=== PATIENT | female | born 1960 | race Caucasian/White ===

== ENCOUNTER → 2016-11-23 | Outpatient (CLI) | payer OTHER ==
--- NOTE | 2016-11-23 15:30 | REPMRS ---
Patient History The patient states she had a clinical breast exam in Patient is postmenopausal. Family history of breast cancer in mother at age 50 or over, breast cancer in maternal cousin under age 50, and ovarian cancer in maternal cousin under age 50. Digital Woman Screen Mammo: November 23, 2016 - Exam #: [id number] Bilateral CC and MLO view(s) were taken. Technologist: Cara Draper, Technologist Prior study comparison: November 11, 2015, digital woman screen mammo performed at [facility] [employer] [facility]. October 20, 2014, digital woman screen mammo performed at [facility] [employer] [facility]. October 15, 2013, digital woman screen mammo performed at [facility] [employer]. FINDINGS: There are scattered fibroglandular densities. There has been no change in the appearance of the mammogram from the prior studies. There is a mild amount of scattered fibroglandular density which is fairly symmetric. There is no interval development of dominant mass, architectural distortion, or clustered microcalcification suggestive of malignancy. ASSESSMENT: BI-RADS/ACR category 1 mammogram. Negative. Recommendation Routine screening mammogram in 1 year (for women over age 40). This mammogram was interpreted with the aid of an FDA-approved computer-aided dectection system. Electronically Signed By: Desmond Ovalle MD 11/23/16 [id number]
== END ==
LOC: M WHC 14:46
PROVIDERS: ATTEND Nurse Practitioner Women's Health
DX: Z12.31 Encounter for screening mammogram for malignant neoplasm of breast (principal); Z78.0 Asymptomatic menopausal state; Z80.3 Family history of malignant neoplasm of breast

== ENCOUNTER → 2016-11-23 | Outpatient (REF) | payer OTHER | END | disposition home or self-care (01) | LOC: M SFHCWAGY 14:48 | PROVIDERS: ATTEND Nurse Practitioner Women's Health | DX: Z01.419 Encounter for gynecological examination (general) (routine) without abnormal findings (principal); Z11.51 Encounter for screening for human papillomavirus (HPV) ==

== ENCOUNTER → 2016-12-05 | Outpatient (REF) | payer OTHER | LOC: M SFHCWAGY 16:57 | PROVIDERS: ATTEND Nurse Practitioner Family | DX: N94.89 Other specified conditions associated with female genital organs and menstrual cycle (principal) ==

== ENCOUNTER → 2017-05-11 | Outpatient (REF) | payer OTHER ==
[~2017-05-11] MED LIST: ASPI81TA85 PO; ATOR1TAB21 PO; FISH100049 PO
[2017-05-11 17:23] LABS: CHOLESTEROL LEVEL 253 MG/DL (<200); TRIGLYCERIDES LEVEL 575 MG/DL (<150)
== END ==
LOC: M SFHCPLAZ 07:45
PROVIDERS: ATTEND Nurse Practitioner Adult Health
DX: Z72.0 Tobacco use (principal)

== ENCOUNTER 2017-05-12 14:54 | Emergency (ER) | payer OTHER ==
[~2017-05-12] VITALS: Ht 152.4 cm; Wt 72.7 kg
[2017-05-12] MEDS ORDERED: FISH100049 PO (15:08)
[2017-05-12] MEDS ORDERED: ATOR1TAB21 PO (15:08)
[2017-05-12] MEDS ORDERED: ASPIRIN 81 MG CHEW TABLET PO ONE (15:30)
[2017-05-12 15:58] LABS: BASO # 0.1 K/mm3 (0.0-0.2); BASO % 0.8 % (0.0-1.0); EOS # 0.2 K/mm3 (0.0-0.50); EOS % 1.9 % (0.0-3.0); LARGE UNSTAINED CELL # 0.1 K/mm3 (0.0-0.4); LARGE UNSTAINED CELL % 1.4 % (0.0-4.0); LYMPH # 2.4 K/mm3 (1.5-4.5); LYMPH % 22.4 % (24.0-44.0); MEAN CORPUSCULAR HEMOGLOBIN 31.8 pg (27.0-33.0); MEAN CORPUSCULAR HGB CONC 34.2 g/dl (32.0-36.5); MONO # 0.6 K/mm3 (0.0-0.8); MONO % 5.9 % (0.0-5.0); NEUTROPHILS % 67.7 % (36.0-66.0); PLATELET COUNT, AUTOMATED 292 k/mm3 (150-450); RED CELL DISTRIBUTION WIDTH 13.2 % (11.5-14.5); WHITE BLOOD COUNT 10.3 K/mm3 (4.0-10.0)
[2017-05-12 16:06] LABS: INR 0.89
[2017-05-12 16:22] LABS: ALBUMIN 3.5 GM/DL (3.2-5.2); ALBUMIN/GLOBULIN RATIO 1.03 (1.00-1.93); ALKALINE PHOSPHATASE 91 U/L (45-117); ALT/SGPT 27 U/L (12-78); ANION GAP 9 MEQ/L (8-16); AST/SGOT 16 U/L (15-37); BILIRUBIN,DIRECT < 0.1 MG/DL (0.0-0.2); BILIRUBIN,TOTAL 0.2 MG/DL (0.2-1.0); BLOOD UREA NITROGEN 21 MG/DL (7-18); CALCIUM LEVEL 9.2 MG/DL (8.5-10.1); CARBON DIOXIDE LEVEL 26 MEQ/L (21-32); CHLORIDE LEVEL 107 MEQ/L (98-107); CREATININE FOR GFR 0.74 MG/DL (0.55-1.02); GLOMERULAR FILTRATION RATE > 60.0 (>51); GLUCOSE, FASTING 96 MG/DL (70-105); POTASSIUM SERUM 4.2 MEQ/L (3.5-5.1); SODIUM LEVEL 142 MEQ/L (136-145); TOTAL PROTEIN 6.9 GM/DL (6.4-8.2)
[2017-05-12] MEDS ORDERED: ASPI81TA85 PO (16:33)
[2017-05-12 16:34] LABS: ERYTHROCYTE SEDIMENTATION RATE 35 mm/hr (0-30)
--- NOTE | 2017-05-12 16:51 | REP ---
CHEST, SINGLE VIEW, PORTABLE: COMPARISON: 03/27/2013 There is no evidence of acute infiltrate. No pleural effusion is seen. The heart is normal in size. The mediastinal silhouette is unremarkable. The visualized osseous structures are intact. IMPRESSION: No acute pulmonary disease. Signed by Fuentes Hernandez MD 05/12/2017 04:52 P
[2017-05-12 22:10] VITALS: BP 133/60
--- NOTE | 2017-05-14 02:16 | ECGEPIP ---
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
--- NOTE | 2017-05-14 02:32 | ECGEPIP ---
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
== END 2017-05-12 22:20 | disposition home or self-care (01) ==
LOC: M ED 14:54
DX: R07.9 Chest pain, unspecified (principal); E78.4 Other hyperlipidemia; Z72.0 Tobacco use

== ENCOUNTER → 2017-05-16 | Outpatient (REF) | payer OTHER ==
[2017-05-19 00:06] LABS: Lyme Disease IgG/IgM Antibodie <0.91 ISR (0.00-0.90); Lyme Disease IgM Ab Quantitati <0.80 index (0.00-0.79)
== END ==
LOC: M SFHCPLAZ 14:20
PROVIDERS: ATTEND Nurse Practitioner Adult Health
DX: M79.1 Myalgia (principal)

== ENCOUNTER → 2017-06-13 | Outpatient (CLI) | payer OTHER ==
--- NOTE | 2017-06-14 07:06 | REP ---
Clinical: Lung screening. Nicotine dependence. Comparison: None Technique: Axial low-dose noncontrast images from the thoracic inlet to the upper abdomen using lung screening technique. Findings: The lung wiley are well-aerated. There are small areas of opacity identified in the lingula and medial right middle lobe which may reflect nonacute fibroatelectatic changes. No significant nodule or mass lesion is appreciated. No pleural effusion/reaction or pneumothorax. Tracheobronchial tree is patent. Mediastinum demonstrates mild atherosclerotic changes of the coronary arteries without cardiomegaly. Impression: Lung-RADS category III (Probably benign findings). With small areas of opacity noted in the right middle lobe and lingula. Consider follow-up low-dose CT examination in 6 months to evaluate for stability. Signed by Jared Morales MD 06/14/2017 06:58 A
== END ==
LOC: M RAD 16:54
PROVIDERS: ATTEND Nurse Practitioner Adult Health
DX: Z12.2 Encounter for screening for malignant neoplasm of respiratory organs (principal); F17.210 Nicotine dependence, cigarettes, uncomplicated

== ENCOUNTER → 2017-07-12 | Outpatient (REF) | payer OTHER | LOC: M LAB REF 16:15 | PROVIDERS: ATTEND Obstetrics & Gynecology | DX: R39.89 Other symptoms and signs involving the genitourinary system (principal) ==

== ENCOUNTER → 2017-09-20 | Outpatient (REF) | payer OTHER ==
[2017-09-20 18:31] LABS: BASO # 0.1 10^3/uL (0.0-0.2); BASO % 0.6 % (0.0-1.0); EOS # 0.2 10^3/uL (0.0-0.50); EOS % 1.8 % (0.0-3.0); IMMATURE GRANULOCYTE % 1.1 % (0-0); LYMPH # 3.4 10^3/uL (1.5-4.5); LYMPH % 31.5 % (24.0-44.0); MEAN CORPUSCULAR HEMOGLOBIN 30.4 pg (27.0-33.0); MEAN CORPUSCULAR HGB CONC 32.6 g/dl (32.0-36.5); MEAN CORPUSCULAR VOLUME 93.2 fl (80.0-96.0); MONO # 0.8 10^3/uL (0.0-0.8); MONO % 7.8 % (0.0-5.0); NEUTROPHILS # 6.1 10^3/uL (1.8-7.7); NEUTROPHILS % 57.2 % (36.0-66.0); PLATELET COUNT, AUTOMATED 400 10^3/uL (150-450); RED CELL DISTRIBUTION WIDTH 13.1 % (11.5-14.5); WHITE BLOOD COUNT 10.7 10^3/uL (4.0-10.0)
[2017-09-20 18:42] LABS: ANION GAP 8 MEQ/L (8-16); BLOOD UREA NITROGEN 14 MG/DL (7-18); CALCIUM LEVEL 9.3 MG/DL (8.5-10.1); CARBON DIOXIDE LEVEL 27 MEQ/L (21-32); CHLORIDE LEVEL 107 MEQ/L (98-107); GLOMERULAR FILTRATION RATE > 60.0 (>51); GLUCOSE, FASTING 70 MG/DL (70-105); POTASSIUM SERUM 4.4 MEQ/L (3.5-5.1); SODIUM LEVEL 142 MEQ/L (136-145)
== END ==
LOC: M LABDRAW1 15:27
PROVIDERS: ATTEND Internal Medicine Cardiovascular Disease
DX: R06.02 Shortness of breath (principal)

== ENCOUNTER → 2017-09-28 | Outpatient (REF) | payer OTHER ==
[2017-09-28 19:56] LABS: ALBUMIN 3.9 GM/DL (3.2-5.2); ALBUMIN/GLOBULIN RATIO 0.98 (1.00-1.93); ALKALINE PHOSPHATASE 81 U/L (45-117); ALT/SGPT 25 U/L (12-78); ANION GAP 8 MEQ/L (8-16); AST/SGOT 17 U/L (7-37); BILIRUBIN,TOTAL 0.2 MG/DL (0.2-1.0); BLOOD UREA NITROGEN 22 MG/DL (7-18); CALCIUM LEVEL 9.1 MG/DL (8.5-10.1); CARBON DIOXIDE LEVEL 26 MEQ/L (21-32); CHLORIDE LEVEL 109 MEQ/L (98-107); CHOLESTEROL LEVEL 240 MG/DL (<200); GLOMERULAR FILTRATION RATE > 60.0 (>51); GLUCOSE, FASTING 80 MG/DL (70-105); POTASSIUM SERUM 4.3 MEQ/L (3.5-5.1); SODIUM LEVEL 143 MEQ/L (136-145); TOTAL PROTEIN 7.9 GM/DL (6.4-8.2); TRIGLYCERIDES LEVEL 230 MG/DL (<150)
== END ==
LOC: M SFHCPLAZ 11:07
PROVIDERS: ATTEND Nurse Practitioner Adult Health
DX: E78.2 Mixed hyperlipidemia (principal)

== ENCOUNTER → 2017-12-27 | Outpatient (REF) | payer OTHER | LOC: M SFHCWAGY 14:30 | DX: Z12.4 Encounter for screening for malignant neoplasm of cervix (principal); R87.610 Atypical squamous cells of undetermined significance on cytologic smear of cervix (ASC-US) | CPT/HCPCS: G0123 ==

== ENCOUNTER → 2017-12-27 | Outpatient (CLI) | payer OTHER | LOC: M WHC 14:05 | DX: Z12.31 Encounter for screening mammogram for malignant neoplasm of breast (principal) ==

== ENCOUNTER → 2018-01-11 | Outpatient (REF) | payer OTHER | LOC: M SFHCWAGY 14:36 | DX: R87.610 Atypical squamous cells of undetermined significance on cytologic smear of cervix (ASC-US) (principal); R87.810 Cervical high risk human papillomavirus (HPV) DNA test positive ==

== ENCOUNTER → 2018-04-06 | Outpatient (REF) | payer OTHER ==
[2018-04-06 15:42] LABS: ALBUMIN 3.5 GM/DL (3.2-5.2); ALBUMIN/GLOBULIN RATIO 0.92 (1.00-1.93); ALKALINE PHOSPHATASE 87 U/L (45-117); ALT/SGPT 27 U/L (12-78); ANION GAP 11 MEQ/L (8-16); AST/SGOT 19 U/L (7-37); BILIRUBIN,TOTAL 0.2 MG/DL (0.2-1.0); BLOOD UREA NITROGEN 17 MG/DL (7-18); CALCIUM LEVEL 8.8 MG/DL (8.5-10.1); CARBON DIOXIDE LEVEL 23 MEQ/L (21-32); CHLORIDE LEVEL 109 MEQ/L (98-107); CHOLESTEROL LEVEL 255 MG/DL (<200); CHOLESTEROL RISK RATIO 6.375 (<5); GLOMERULAR FILTRATION RATE > 60.0 (>51); GLUCOSE, FASTING 80 MG/DL (70-100); HDL CHOLESTEROL 40 MG/DL (>40); LDL CHOLESTEROL 147.4 MG/DL (<100); NON-HDL-C 215 MG/DL; POTASSIUM SERUM 4.4 MEQ/L (3.5-5.1); SODIUM LEVEL 143 MEQ/L (136-145); TOTAL PROTEIN 7.3 GM/DL (6.4-8.2); TRIGLYCERIDES LEVEL 338 MG/DL (<150)
== END ==
LOC: M LABDRAW1 11:55
DX: Z00.00 Encounter for general adult medical examination without abnormal findings (principal); E78.2 Mixed hyperlipidemia

== ENCOUNTER → 2018-04-23 | Outpatient (CLI) | payer OTHER | LOC: M RAD 12:35 | DX: R91.8 Other nonspecific abnormal finding of lung field (principal) | CPT/HCPCS: 71250 ==

== ENCOUNTER → 2019-02-06 | Outpatient (CLI) | payer OTHER ==
--- NOTE | 2019-02-06 15:54 | REPMRS ---
Patient History The patient states she had a clinical breast exam in 01/2019. Family history of breast cancer at age 50 or over in mother, breast cancer under age 50 and ovarian cancer under age 50 in maternal cousin. Benign excisional biopsy of the left breast, 2006. 3D TOMOSYNTHESIS WAS PERFORMED. Digital Woman Screen Mammo: February 06, 2019 - Exam #: [id number] Bilateral CC and MLO view(s) were taken. Technologist: Lisbeth Hu, Technologist Prior study comparison: December 27, 2017, digital woman screen mammo performed at [facility] [employer] [facility] [employer] [facility]. November 23, 2016, digital woman screen mammo performed at [facility] [employer] [facility] [employer] [facility]. FINDINGS: There are scattered fibroglandular densities. There has been no change in the appearance of the mammogram from the prior studies. There is a mild amount of residual fibroglandular tissue which is fairly symmetric. There is no interval development of dominant mass, architectural distortion, or clustered microcalcification suggestive of malignancy. Assessment: BI-RADS/ACR category 1 mammogram. Negative Mammogram. Recommendation Routine screening mammogram in 1 year (for women over age 40). This mammogram was interpreted with the aid of an FDA-approved computer-aided dectection system. Electronically Signed By: Fuentes Hernandez MD 02/06/19 [id number]
== END ==
LOC: M WHC 14:07
PROVIDERS: ATTEND Nurse Practitioner Women's Health
DX: Z12.31 Encounter for screening mammogram for malignant neoplasm of breast (principal); Z80.3 Family history of malignant neoplasm of breast

== ENCOUNTER → 2019-02-06 | Outpatient (REF) | payer OTHER ==
[2019-02-08 14:26] LABS: HPV HYBRID CAPTURE II Negative (Negative)
== END ==
LOC: M SFHCWAGY 14:39
PROVIDERS: ATTEND Nurse Practitioner Women's Health
DX: Z87.898 Personal history of other specified conditions (principal); Z12.4 Encounter for screening for malignant neoplasm of cervix
CPT/HCPCS: 87624; G0123

== ENCOUNTER → 2019-04-04 | Outpatient (REF) | payer OTHER ==
[2019-04-04 16:50] LABS: ALBUMIN 3.3 GM/DL (3.2-5.2); ALT/SGPT 20 U/L (12-78); BILIRUBIN,TOTAL < 0.1 MG/DL (0.2-1.0); BLOOD UREA NITROGEN 23 MG/DL (7-18); CALCIUM LEVEL 9.1 MG/DL (8.5-10.1); CARBON DIOXIDE LEVEL 26 MEQ/L (21-32); CHLORIDE LEVEL 111 MEQ/L (98-107); CHOLESTEROL LEVEL 219 MG/DL (<200); CHOLESTEROL RISK RATIO 5.214 (<5); CREATININE FOR GFR 0.77 MG/DL (0.55-1.30); GLOMERULAR FILTRATION RATE > 60.0 (>51); GLUCOSE, FASTING 90 MG/DL (70-100); HDL CHOLESTEROL 42 MG/DL (>40); LDL CHOLESTEROL 131 MG/DL (<100); NON-HDL-C 177 MG/DL; POTASSIUM SERUM 4.3 MEQ/L (3.5-5.1); SODIUM LEVEL 142 MEQ/L (136-145); TOTAL PROTEIN 6.9 GM/DL (6.4-8.2); TRIGLYCERIDES LEVEL 228 MG/DL (<150)
[2019-04-04 16:55] LABS: TOTAL 25(OH) VITAMIN D 15.7 NG/ML (30.0-100.0)
== END ==
LOC: M SFHCCAPE 08:47
PROVIDERS: ATTEND Nurse Practitioner Adult Health
DX: E78.2 Mixed hyperlipidemia (principal); E55.9 Vitamin D deficiency, unspecified

== ENCOUNTER → 2020-06-16 | Outpatient (CLI) | payer BC ==
[~2020-06-16] MED LIST changes: -ASPI81TA85 PO; +ASPI81TA86 PO
--- NOTE | 2020-06-16 12:06 | REPMRS ---
Patient History The patient states she had a clinical breast exam in June 2020. Patient is postmenopausal. Family history of breast cancer at age 50 or over in mother, breast cancer under age 50 and ovarian cancer under age 50 in maternal cousin, breast cancer at age 52 in maternal cousin. Benign excisional biopsy of the left breast, 2005. 3D TOMOSYNTHESIS WAS PERFORMED. The [facility] lifetime risk for breast cancer is 11.1%. VOLPARA DENSITY B. Digital Woman Screen Mammo: June 16, 2020 - Exam #: [id number] Bilateral CC and MLO view(s) were taken. Technologist: Shireen Marquez, Technologist Prior study comparison: February 06, 2019, bilateral digital woman screen mammo performed at [facility]. December 27, 2017, digital woman screen mammo performed at [facility]. FINDINGS: There are scattered fibroglandular densities. There has been no change in the appearance of the mammogram from the prior studies. There is a mild amount of residual fibroglandular tissue which is fairly symmetric. There is no interval development of dominant mass, architectural distortion, or clustered microcalcification suggestive of malignancy. Assessment: BI-RADS/ACR category 1 mammogram. Negative Mammogram. Recommendation Routine screening mammogram in 1 year (for women over age 40). This mammogram was interpreted with the aid of an FDA-approved computer-aided dectection system. Electronically Signed By: Fuentes Hernandez MD 06/16/20 [id number]
== END ==
LOC: M WHC 09:20
PROVIDERS: ATTEND Nurse Practitioner Women's Health
DX: Z12.31 Encounter for screening mammogram for malignant neoplasm of breast (principal)

== ENCOUNTER → 2021-01-08 | Outpatient (CLI) | payer BC, OTHER ==
[~2021-01-08] MED LIST changes: +ISOVUE-300 61% 50ML VIAL As Ordered ONE; +LIDOCAINE 1% MDV 20ML VIAL As Ordered ONE; +TRIAMCINOLONE ACETONIDE SUSP 40 MG/ML VIAL (J3301) As Ordered ONE
--- NOTE | 2021-01-08 17:54 | REP ---
INDICATION: OSTEOARTHRITIS LEFT SHOULDER. COMPARISON: None. TECHNIQUE: The procedure was performed under the direct supervision of Dr. Hernandez. The benefits and risks including but not limited to pain infection and bleeding and anaphylaxis were explained to the patient and informed consent was obtained. The left glenohumeral joint space was localized using fluoroscopic guidance. The skin was prepped and draped in a sterile fashion. 1% lidocaine was used as a local anesthetic. Using fluoroscopic guidance a 22 gauge spinal needle was inserted and advanced into the joint. 1 cc of Isovue-300 was injected to verify placement. 6 cc of a solution containing 5 cc of 1% lidocaine and 1 cc of Kenalog 40 mg was injected. The needle was then removed. The patient tolerated the procedure well and there were no immediate complications. Less than 6 seconds of fluoro time was utilized for this procedure. FINDINGS: None IMPRESSION: Fluoro guidance for left shoulder injection. <Electronically signed by Aries Davila > 01/08/21 2046 <Electronically signed by Fuentes Hernandez > 01/08/21 1208
== END ==
LOC: M RADPRO 11:05
PROVIDERS: ATTEND Orthopaedic Surgery
DX: M19.012 Primary osteoarthritis, left shoulder (principal)
CPT/HCPCS: 20610; 77002; J3301; Q9967

== ENCOUNTER → 2021-04-19 | Outpatient (CLI) | payer OTHER ==
[~2021-04-19] MED LIST changes: -ISOVUE-300 61% 50ML VIAL As Ordered ONE; -LIDOCAINE 1% MDV 20ML VIAL As Ordered ONE; -TRIAMCINOLONE ACETONIDE SUSP 40 MG/ML VIAL (J3301) As Ordered ONE
--- NOTE | 2021-04-19 14:23 | REP ---
INDICATION: SOB COMPARISON: 05/12/2017 TECHNIQUE: PA and lateral. FINDINGS: The mediastinum and cardiac silhouette are normal. The lung wiley are clear and without acute consolidation, effusion, or pneumothorax. Small areas of chronic linear scarring in the left lower lobe noted. The skeletal structures are intact and normal. IMPRESSION: No acute cardiopulmonary process. <Electronically signed by Jared Morales > 04/19/21 [id number]
== END ==
LOC: M WUC 13:58
PROVIDERS: ATTEND Internal Medicine
DX: R06.02 Shortness of breath (principal); J98.4 Other disorders of lung

== ENCOUNTER → 2021-07-21 | Outpatient (REF) | payer OTHER | LOC: M SFHCWAGY 14:02 | PROVIDERS: ATTEND Nurse Practitioner Women's Health | DX: Z12.4 Encounter for screening for malignant neoplasm of cervix (principal); Z01.419 Encounter for gynecological examination (general) (routine) without abnormal findings; Z77.9 Other contact with and (suspected) exposures hazardous to health ==

== ENCOUNTER → 2021-07-21 | Outpatient (CLI) | payer OTHER ==
--- NOTE | 2021-07-21 11:03 | REPMRS ---
Patient History The patient states she had a clinical breast exam in July 2021. Family history of breast cancer at age 50 or over in mother, breast cancer under age 50 and ovarian cancer under age 50 in maternal cousin, breast cancer at age 52 in maternal cousin. Benign excisional biopsy of the left breast, 2005. Patient states no breast complaints today. Patient has signed MRS History Sheet. Digital Woman Screen Mammo: July 21, 2021 - Exam #: [id number] Bilateral CC and MLO view(s) were taken. Technologist: Lisbeth Hu, Technologist Prior study comparison: June 16, 2020, bilateral digital woman screen mammo performed at [facility]. February 06, 2019, bilateral digital woman screen mammo performed at [facility]. December 27, 2017, digital woman screen mammo performed at [facility]. FINDINGS: The breast tissue is almost entirely fat. The Volpara volumetric breast density category is: A. There has been no change in the appearance of the mammogram from the prior studies. There is no interval development of dominant mass, architectural distortion, or grouped microcalcification typical of malignancy. 3-D tomosynthesis shows no additional findings. Assessment: BI-RADS/ACR category 1 mammogram. Negative Mammogram. Recommendation Routine screening mammogram of both breasts in 1 year (for women over age 40). This patient's [facility] Lifetime Breast Cancer RIsk is estimated at 10.7 %. This mammogram was interpreted with the aid of an FDA-approved computer-aided dectection system. Electronically Signed By: Desmond Ovalle MD 07/21/21 8464
== END ==
LOC: M WHC 09:38
PROVIDERS: ATTEND Nurse Practitioner Women's Health
DX: Z12.31 Encounter for screening mammogram for malignant neoplasm of breast (principal)

== ENCOUNTER → 2022-05-05 | Outpatient (CLI) | payer OTHER ==
[~2022-05-05] MED LIST changes: +ATOR1TAB19 PO
== END ==
LOC: M LABSMTC 09:47
PROVIDERS: ATTEND Anesthesiology
DX: Z01.818 Encounter for other preprocedural examination (principal); Z11.52 Encounter for screening for COVID-19

== ENCOUNTER 2022-05-10 11:56 | Day surgery (SDC) | payer OTHER ==
[~2022-05-10] VITALS: Ht 149.9 cm; Wt 78.9 kg
[2022-05-10] MEDS ORDERED: NS 1,000 ML IV ONE (14:00)
[2022-05-10 14:08] VITALS: BP 128/60
== END 2022-05-10 14:22 | disposition home or self-care (01) ==
LOC: M OPP 11:56
PROVIDERS: ATTEND Internal Medicine Gastroenterology
DX: Z12.11 Encounter for screening for malignant neoplasm of colon (principal); K63.5 Polyp of colon; K57.30 Diverticulosis of large intestine without perforation or abscess without bleeding; K64.8 Other hemorrhoids; K22.4 Dyskinesia of esophagus; K31.89 Other diseases of stomach and duodenum; K31.811 Angiodysplasia of stomach and duodenum with bleeding; G47.30 Sleep apnea, unspecified; E78.00 Pure hypercholesterolemia, unspecified; F17.290 Nicotine dependence, other tobacco product, uncomplicated; Z79.02 Long term (current) use of antithrombotics/antiplatelets; Z80.1 Family history of malignant neoplasm of trachea, bronchus and lung

== ENCOUNTER → 2022-06-30 | Outpatient (CLI) | payer OTHER | LOC: M SOG 09:43 | PROVIDERS: ATTEND Orthopaedic Surgery Adult Reconstructive Orthopaedic Surgery | DX: M16.11 Unilateral primary osteoarthritis, right hip (principal); M89.8X5 Other specified disorders of bone, thigh ==

== ENCOUNTER → 2022-08-09 | Outpatient (CLI) | payer OTHER ==
[2022-08-09 13:42] LABS: ALBUMIN 3.4 GM/DL (3.2-5.2); ALT/SGPT 37 U/L (12-78); BILIRUBIN,TOTAL 0.3 MG/DL (0.2-1.0); BLOOD UREA NITROGEN 16 MG/DL (7-18); CALCIUM LEVEL 9.3 MG/DL (8.8-10.2); CARBON DIOXIDE LEVEL 26 MEQ/L (21-32); CHLORIDE LEVEL 105 MEQ/L (98-107); CHOLESTEROL LEVEL 203 MG/DL (<200); CHOLESTEROL RISK RATIO 4.951 (<5); CREATININE FOR GFR 0.74 MG/DL (0.55-1.30); GLOMERULAR FILTRATION RATE > 60.0 (>45); GLUCOSE, FASTING 111 MG/DL (70-100); HDL CHOLESTEROL 41 MG/DL (>40); NON-HDL-C 162 MG/DL; POTASSIUM SERUM 4.6 MEQ/L (3.5-5.1); SODIUM LEVEL 136 MEQ/L (136-145); TOTAL PROTEIN 7.1 GM/DL (6.4-8.2); TRIGLYCERIDES LEVEL 438 MG/DL (<150)
== END ==
LOC: M WUC 09:12
PROVIDERS: ATTEND Internal Medicine
DX: E78.5 Hyperlipidemia, unspecified (principal)

== ENCOUNTER 2022-08-22 13:03 | Outpatient (RCR) | payer OTHER ==
[~2022-08-22 13:03] MED LIST changes: -PROHANCE 279.3MG/ML 15ML VIAL As Ordered ONE
[2022-09-15] MEDS ORDERED: FENO145T7 PO (11:37)
== END 2022-09-14 ==
LOC: M PT 13:03
PROVIDERS: ATTEND Orthopaedic Surgery Adult Reconstructive Orthopaedic Surgery
DX: M16.0 Bilateral primary osteoarthritis of hip (principal)

== ENCOUNTER → 2022-08-22 | Outpatient (CLI) | payer OTHER ==
[~2022-08-22] MED LIST changes: +PROHANCE 279.3MG/ML 15ML VIAL As Ordered ONE
== END ==
LOC: M RAD 15:38
PROVIDERS: ATTEND Orthopaedic Surgery Adult Reconstructive Orthopaedic Surgery
DX: M16.0 Bilateral primary osteoarthritis of hip (principal); M25.451 Effusion, right hip; M89.9 Disorder of bone, unspecified
CPT/HCPCS: 73723; A9576

== ENCOUNTER → 2022-09-13 | Outpatient (CLI) | payer OTHER ==
[~2022-09-13] MED LIST changes: +FENO145T7 PO
== END ==
LOC: M RAD 16:07
PROVIDERS: ATTEND Orthopaedic Surgery Adult Reconstructive Orthopaedic Surgery
DX: M16.0 Bilateral primary osteoarthritis of hip (principal); M17.0 Bilateral primary osteoarthritis of knee

== ENCOUNTER → 2022-09-22 | Outpatient (CLI) | payer OTHER | LOC: M LABSMTC 10:05 | PROVIDERS: ATTEND Anesthesiology | DX: Z01.812 Encounter for preprocedural laboratory examination (principal); Z11.52 Encounter for screening for COVID-19 ==

== ENCOUNTER 2022-09-27 09:10 | Inpatient (IN) | payer OTHER ==
[2022-09-27] VITALS (8 sets, daily range): BP systolic 115–122; BP diastolic 59–68; O2SAT 94–96
[~2022-09-27] VITALS: Ht 152.4 cm; Wt 79.3 kg
[~2022-09-27 09:10] MED LIST changes: +ACETAMINOPHEN 500 MG TAB PO ONE; +LIDOCAINE 2% 100MG/5ML SDV (FOR ANES.) As Ordered ONE; +MIDAZOLAM INJ 2MG/2ML VIAL (J2250 PER 1MG) As Ordered ONE; +NAPROXEN 250 MG TAB PO ONE; +NS 1,000 ML IV ONE; +ONDANSETRON 4MG 2ML VIAL As Ordered ONE; +PHENYLEPHRINE 10MG/ML 1ML VIAL As Ordered ONE; +PREGABALIN 25 MG CAP (LYRICA) PO ONE; +ROPIVA 125MG/EPINEPH 0.25MG/CLONID 40MCG/KETOR 15MG IN NS 50ML SYRINGE PA ONE; +ceFAZolin SOD 2 GM in IV 1 EA IV ONE; +propofoL 500 MG/50 ML VIAL As Ordered ONE
[2022-09-27] MEDS ORDERED: LR 1,000 ML IV SCH ×3 (09:25→14:30)
[2022-09-27] MEDS ORDERED: HOME MED LIST COMPLETE! XX SCH (10:00)
[2022-09-27] MEDS ORDERED: TRANEXAMIC ACID 100 MG/ML 10ML VIAL As Ordered ONE (10:21)
[2022-09-27] MEDS ORDERED: fentaNYL 100 MCG/2 ML INJECTION As Ordered ONE (10:35)
[2022-09-27] MEDS ORDERED: ROCURONIUM BROMIDE 50 MG/5 ML VIAL As Ordered ONE (10:36)
[2022-09-27] MEDS ORDERED: HYDROmorphone HCL 2MG/ML 1ML VIAL As Ordered ONE (11:27)
[2022-09-27] MEDS ORDERED: VECURONIUM BROMIDE 10MG VIAL As Ordered ONE (11:42)
[2022-09-27] MEDS ORDERED: VANCOMYCIN 1000MG/20ML VIAL As Ordered ONE (13:35)
[2022-09-27] MEDS ORDERED: SUGAMMADEX SODIUM 500 MG/5 ML VIAL (BRIDION) As Ordered ONE (13:51)
[2022-09-27] MEDS ORDERED: ONDANSETRON 4MG 2ML VIAL IV PRN ×2 (14:10→14:30)
[2022-09-27] MEDS ORDERED: HYDROMORPHONE HCL 0.5 MG/ 0.5 ML SYRINGE (J1170 PER 1) IV PRN (14:10)
[2022-09-27] MEDS ORDERED: oxyCODONE 5MG TAB PO PRN ×3 (14:10→14:30)
[2022-09-27] MEDS ORDERED: fentaNYL 100 MCG/2 ML INJECTION IV PRN (14:10)
[2022-09-27] MEDS ORDERED: SENNA 8.6 MG TAB (SENOKOT) PO PRN (14:30)
[2022-09-27] MEDS ORDERED: MOM 30ML SUSPENSION UDC PO PRN (15:05)
[2022-09-27] MEDS ORDERED: MAALOX 30 ML SUSP *UDC PO PRN (15:05)
[2022-09-27] MEDS: ceFAZolin SOD 2 GM in IV 1 EA IV SCH (17:53)
[2022-09-27] MEDS: FENOFIBRATE 145MG TABLET (TRICOR) PO SCH (17:54)
[2022-09-27] MEDS: ACETAMINOPHEN TAB 650MG DOSE (2X325MG) PO SCH ×2 (17:54→23:42)
[2022-09-27] MEDS: DOCUSATE SODIUM 100MG CAPSULE PO SCH (20:49)
[2022-09-27] MEDS: NAPROXEN 250 MG TAB PO SCH (20:49)
[2022-09-27] MEDS: ASPIRIN 81MG ENTERIC TABLET PO SCH (20:49)
[2022-09-27] MEDS ORDERED: ATORVASTATIN 10 MG TAB PO SCH (21:00)
[2022-09-28 02:00] VITALS: BP 121/63
[2022-09-28] MEDS: ceFAZolin SOD 2 GM in IV 1 EA IV SCH (02:58)
[2022-09-28] MEDS: ACETAMINOPHEN TAB 650MG DOSE (2X325MG) PO SCH ×2 (05:24→11:30)
[2022-09-28 06:00] VITALS: BP 132/70
[2022-09-28 06:26] LABS: BASO % 0.2 % (0.0-1.0); EOS % 0.1 % (0.0-3.0); HEMATOCRIT 36.5 % (36.0-47.0); HEMOGLOBIN 11.5 g/dl (12.0-15.5); LYMPH # 1.7 10^3/uL (1.5-5.0); LYMPH % 11.8 % (24.0-44.0); MEAN CORPUSCULAR HEMOGLOBIN 29.7 pg (27.0-33.0); MEAN CORPUSCULAR HGB CONC 31.5 g/dl (32.0-36.5); MEAN CORPUSCULAR VOLUME 94.3 fl (80.0-96.0); MONO % 12.6 % (2.0-8.0); NEUTROPHILS # 10.5 10^3/uL (1.5-8.5); NEUTROPHILS % 74.4 % (36.0-66.0); PLATELET COUNT, AUTOMATED 308 10^3/uL (150-450); RED BLOOD COUNT 3.87 10^6/uL (4.00-5.40); WHITE BLOOD COUNT 14.1 10^3/uL (4.0-10.0)
[2022-09-28 06:44] LABS: MAGNESIUM LEVEL 1.7 MG/DL (1.8-2.4)
[2022-09-28 06:45] LABS: BLOOD UREA NITROGEN 27 MG/DL (9-23); CARBON DIOXIDE LEVEL 25 MMOL/L (20-31); CHLORIDE LEVEL 105 MMOL/L (98-107); CREATININE FOR GFR 0.77 MG/DL (0.55-1.30); GLOMERULAR FILTRATION RATE > 60.0 (>45); GLUCOSE, FASTING 146 MG/DL (74-106); POTASSIUM SERUM 4.8 MMOL/L (3.5-5.1); SODIUM LEVEL 137 MMOL/L (136-145)
[2022-09-28 07:01] LABS: MONO # 1.8 10^3/uL (0.0-0.8)
[2022-09-28] MEDS ORDERED: MAG SULF 1GM/100ML (MAG RUN) 1 GM in IV 1 EA IV ONE (08:00)
[2022-09-28 09:00] VITALS: O2SAT 94
[2022-09-28] MEDS ORDERED: ASCORBIC ACID 500 MG TAB PO SCH (09:00)
[2022-09-28] MEDS ORDERED: FERROUS SULFATE 325MG TAB PO SCH (09:00)
[2022-09-28] MEDS: NAPROXEN 250 MG TAB PO SCH (09:03)
[2022-09-28] MEDS: ASPIRIN 81MG ENTERIC TABLET PO SCH (09:03)
[2022-09-28] MEDS: DOCUSATE SODIUM 100MG CAPSULE PO SCH (09:03)
[2022-09-28] MEDS ORDERED: ASCO50TA PO (11:21)
[2022-09-28] MEDS ORDERED: FERR1TAB8 PO (11:21)
[2022-09-28] MEDS ORDERED: OXYC-517 PO (11:21)
[2022-09-28] MEDS ORDERED: ASPI81TAEC PO (11:21)
[2022-09-28] MEDS ORDERED: COLA100C5 PO (11:21)
[2022-09-28] MEDS: FENOFIBRATE 145MG TABLET (TRICOR) PO SCH (11:30)
== END 2022-09-28 14:10 | disposition home or self-care (01) | DRG 301 ==
LOC: M SDC 09:10 → M ED INP 15:03 → M MS5PR 16:55
PROVIDERS: ADMIT Internal Medicine; ATTEND Internal Medicine
PROC: 0SR90JA Replacement of Right Hip Joint with Synthetic Substitute, Uncemented, Open Approach (ICD-10-PCS; principal; 2022-09-27 10:25)
DX: M16.11 Unilateral primary osteoarthritis, right hip (principal); E55.9 Vitamin D deficiency, unspecified; G47.33 Obstructive sleep apnea (adult) (pediatric); Z91.119 Patient's noncompliance with dietary regimen due to unspecified reason

== ENCOUNTER → 2022-09-29 | Outpatient (REF) | payer OTHER ==
[~2022-09-29] MED LIST changes: -ACETAMINOPHEN 500 MG TAB PO ONE; +ASCO50TA PO; +ASPI81TAEC PO; +COLA100C5 PO; +FERR1TAB8 PO; -LIDOCAINE 2% 100MG/5ML SDV (FOR ANES.) As Ordered ONE; -MIDAZOLAM INJ 2MG/2ML VIAL (J2250 PER 1MG) As Ordered ONE; -NAPROXEN 250 MG TAB PO ONE; -NS 1,000 ML IV ONE; -ONDANSETRON 4MG 2ML VIAL As Ordered ONE; +OXYC-517 PO; -PHENYLEPHRINE 10MG/ML 1ML VIAL As Ordered ONE; -PREGABALIN 25 MG CAP (LYRICA) PO ONE; -ROPIVA 125MG/EPINEPH 0.25MG/CLONID 40MCG/KETOR 15MG IN NS 50ML SYRINGE PA ONE; -ceFAZolin SOD 2 GM in IV 1 EA IV ONE; -propofoL 500 MG/50 ML VIAL As Ordered ONE
[2022-09-29 13:29] LABS: BASO # 0.1 10^3/uL (0.0-0.2); BASO % 0.5 % (0.0-1.0); EOS % 0.2 % (0.0-3.0); HEMATOCRIT 37.4 % (36.0-47.0); LYMPH # 1.6 10^3/uL (1.5-5.0); LYMPH % 12.4 % (24.0-44.0); MEAN CORPUSCULAR HGB CONC 32.1 g/dl (32.0-36.5); MEAN CORPUSCULAR VOLUME 93.5 fl (80.0-96.0); MONO # 1.5 10^3/uL (0.0-0.8); MONO % 11.7 % (2.0-8.0); NEUTROPHILS # 9.6 10^3/uL (1.5-8.5); PLATELET COUNT, AUTOMATED 341 10^3/uL (150-450)
[2022-09-29 14:08] LABS: BLOOD UREA NITROGEN 17 MG/DL (9-23); CALCIUM LEVEL 9.3 MG/DL (8.3-10.6); CARBON DIOXIDE LEVEL 26 MMOL/L (20-31); CHLORIDE LEVEL 105 MMOL/L (98-107); GLOMERULAR FILTRATION RATE > 60.0 (>45); GLUCOSE, FASTING 149 MG/DL (74-106); POTASSIUM SERUM 5.3 MMOL/L (3.5-5.1); SODIUM LEVEL 141 MMOL/L (136-145)
== END ==
LOC: M SHH 13:08
PROVIDERS: ATTEND Orthopaedic Surgery Adult Reconstructive Orthopaedic Surgery
DX: Z96.641 Presence of right artificial hip joint (principal)

== ENCOUNTER → 2022-10-13 | Outpatient (CLI) | payer OTHER | LOC: M SOG 08:11 | PROVIDERS: ATTEND Orthopaedic Surgery Adult Reconstructive Orthopaedic Surgery | DX: M16.11 Unilateral primary osteoarthritis, right hip (principal) ==

== ENCOUNTER → 2022-11-02 | Outpatient (CLI) | payer OTHER | LOC: M WHC 15:17 | PROVIDERS: ATTEND Advanced Practice Midwife | DX: Z12.31 Encounter for screening mammogram for malignant neoplasm of breast (principal) ==

== ENCOUNTER → 2023-01-17 | Outpatient (REF) | payer OTHER | LOC: M SFHCWAGY 13:04 | PROVIDERS: ATTEND Nurse Practitioner Family | DX: Z12.4 Encounter for screening for malignant neoplasm of cervix (principal); L29.2 Pruritus vulvae; R87.610 Atypical squamous cells of undetermined significance on cytologic smear of cervix (ASC-US) | CPT/HCPCS: 87070; 87205; 87491; 87591; 87624; 87661; 87798; G0123 ==

== ENCOUNTER → 2023-01-26 | Outpatient (REF) | payer OTHER | LOC: M PLALAB 17:17 | PROVIDERS: ATTEND Nurse Practitioner Family | DX: L29.2 Pruritus vulvae (principal); L85.9 Epidermal thickening, unspecified; L90.5 Scar conditions and fibrosis of skin; L30.8 Other specified dermatitis ==

== ENCOUNTER → 2023-03-09 | Outpatient (CLI) | payer OTHER | LOC: M RAD 16:00 | PROVIDERS: ATTEND Nurse Practitioner Family | DX: Z12.2 Encounter for screening for malignant neoplasm of respiratory organs (principal) ==

== ENCOUNTER → 2023-10-18 | Outpatient (REF) | payer OTHER ==
[2023-10-20 06:08] LABS: LDL DIRECT 118 mg/dL (0-99)
== END ==
LOC: M LAB REF 17:19
PROVIDERS: ATTEND Internal Medicine
DX: E78.5 Hyperlipidemia, unspecified (principal); E78.1 Pure hyperglyceridemia

== ENCOUNTER → 2024-02-27 | Outpatient (CLI) | payer OTHER | LOC: M WUC 13:18 | PROVIDERS: ATTEND Orthopaedic Surgery | DX: M25.551 Pain in right hip (principal); M25.552 Pain in left hip ==

== ENCOUNTER → 2024-03-05 | Outpatient (CLI) | payer OTHER | LOC: M WHC 09:16 | PROVIDERS: ATTEND Nurse Practitioner Family | DX: Z12.31 Encounter for screening mammogram for malignant neoplasm of breast (principal) ==

== ENCOUNTER → 2024-03-05 | Outpatient (REF) | payer OTHER | LOC: M SFHCWAGY 12:33 | PROVIDERS: ATTEND Nurse Practitioner Family | DX: Z12.4 Encounter for screening for malignant neoplasm of cervix (principal); R87.810 Cervical high risk human papillomavirus (HPV) DNA test positive | CPT/HCPCS: 87624; G0123 ==

== ENCOUNTER 2024-09-03 13:01 | Emergency (ER) | payer OTHER ==
[~2024-09-03] VITALS: Ht 152.4 cm; Wt 81.6 kg
[2024-09-03 15:27] VITALS: BP 146/79; TEMP 97.7; O2SAT 95
== END 2024-09-03 16:25 | disposition left against medical advice (07) ==
LOC: M ED 13:01
DX: Z53.21 Procedure and treatment not carried out due to patient leaving prior to being seen by health care provider (principal)

== ENCOUNTER → 2024-10-07 | Outpatient (REF) | payer OTHER ==
[2024-10-09 06:12] LABS: LDL DIRECT 95 mg/dL (<100)
== END ==
LOC: M LAB REF 13:00
PROVIDERS: ATTEND Internal Medicine
DX: E78.5 Hyperlipidemia, unspecified (principal)

== ENCOUNTER → 2024-11-21 | Outpatient (REF) | payer OTHER | LOC: M LAB REF 16:34 | PROVIDERS: ATTEND Internal Medicine | DX: E78.5 Hyperlipidemia, unspecified (principal) ==

== ENCOUNTER → 2025-02-24 | Outpatient (REF) | payer OTHER ==
[2025-03-03 12:23] LABS: LYME TOTAL ANTIBODY CIA <= 0.90 Index (<=0.90)
== END ==
LOC: M LAB REF 13:00
PROVIDERS: ATTEND Internal Medicine
DX: M79.10 Myalgia, unspecified site (principal); M25.50 Pain in unspecified joint

== ENCOUNTER → 2025-04-28 | Outpatient (REF) | payer OTHER ==
[2025-04-30 12:07] LABS: HPV APTIMA Not Detected (Not Detected)
== END ==
LOC: M SFHCWAGY 15:25
PROVIDERS: ATTEND Nurse Practitioner Family
DX: Z12.4 Encounter for screening for malignant neoplasm of cervix (principal); B97.7 Papillomavirus as the cause of diseases classified elsewhere; R87.610 Atypical squamous cells of undetermined significance on cytologic smear of cervix (ASC-US)
CPT/HCPCS: 87624; G0123

== ENCOUNTER → 2025-04-28 | Outpatient (CLI) | payer OTHER | LOC: M WHC 13:19 | PROVIDERS: ATTEND Nurse Practitioner Family | DX: Z12.31 Encounter for screening mammogram for malignant neoplasm of breast (principal); Z13.820 Encounter for screening for osteoporosis; N95.1 Menopausal and female climacteric states; R92.313 Mammographic fatty tissue density, bilateral breasts ==

== ENCOUNTER → 2025-08-26 | Outpatient (REF) | payer OTHER ==
[2025-08-26 13:33] LABS: IRON (FE) 68.0 UG/DL (50-170)
[2025-08-26 13:35] LABS: PERCENT SATURATION 18.3 % (13.2-45.0)
== END ==
LOC: M LAB REF 12:04
PROVIDERS: ATTEND Internal Medicine
DX: G25.81 Restless legs syndrome (principal); G47.00 Insomnia, unspecified